=== PATIENT | female | born 1990 | race African-American/Black ===

== ENCOUNTER 2025-02-10 16:42 | Emergency (ER) | payer MEDICAID ==
[~2025-02-10] VITALS: Ht 157.5 cm; Wt 64.0 kg
[2025-02-10 16:55] VITALS: BP 127/82; PULSE 92; RESP 16; TEMP 36.6; O2SAT 99
[2025-02-10] MEDS: KETOROLAC 15MG/ML VIAL IM ONE (17:30)
[2025-02-10] MEDS ORDERED: IBUP-2437 MT (18:50)
[2025-02-10] MEDS ORDERED: TOPUD MT (18:50)
== END 2025-02-10 19:30 | disposition home or self-care (01) ==
LOC: ER 16:42
DX: M54.2 Cervicalgia (principal); Y04.0XXA Assault by unarmed brawl or fight, initial encounter; Y93.89 Activity, other specified; Y92.89 Other specified places as the place of occurrence of the external cause; Y99.8 Other external cause status
CPT/HCPCS: 99285; 70450; 81025; 70490; 96372; J1885

== ENCOUNTER 2025-03-19 11:37 | Emergency (ER) | payer MEDICAID ==
[~2025-03-19] VITALS: Ht 157.5 cm; Wt 64.0 kg
[~2025-03-19 11:37] MED LIST: IBUP-2437 MT; TOPUD MT
[2025-03-19 11:39] VITALS: O2SAT 98
[2025-03-19 11:50] VITALS: TEMP 37; O2SAT 99
[2025-03-19] MEDS ORDERED: IBUP-2028 MT (13:06)
[2025-03-19 13:21] VITALS: BP 113/94; PULSE 87; RESP 16
[2025-03-19] MEDS: IBUPROFEN 400MG TABLET PO ONE (13:21)
== END 2025-03-19 13:27 | disposition home or self-care (01) ==
LOC: ER 11:37
DX: S93.401A Sprain of unspecified ligament of right ankle, initial encounter (principal); X58.XXXA Exposure to other specified factors, initial encounter; Y93.89 Activity, other specified; Y92.89 Other specified places as the place of occurrence of the external cause; Y99.8 Other external cause status
CPT/HCPCS: 73610; 99283; A6449; Z7610